=== PATIENT | male | born 1965 | race Caucasian/White ===

== ENCOUNTER 2017-05-16 13:30 | Inpatient (IN) | payer SELFPAY ==
[~2017-05-16] VITALS: Ht 190.5 cm; Wt 64.5 kg
[2017-05-16 08:00] VITALS: BP 139/76; PULSE 94; RESP 18; TEMP 97.8; O2SAT 98
[2017-05-16 13:39] VITALS: BP 150/92; PULSE 141; RESP 18; TEMP 98.7; O2SAT 97
--- NOTE | 2017-05-16 14:05 | PD ---
HPI Chief Complaint: Fever Time Seen by Provider: 14:04 Travel History International Travel<30 days: No Contact w/Intl Traveler<30days: No Traveled to known affect area: No History of Present Illness HPI 51-year-old male came to the emergency room brought by his margaret with history of fever, vomiting and diarrhea that's been going on for past 3-4 days. The fimayte says that she was not home for past couple days and she came home yesterday. She noticed that he continued to have the vomiting and diarrhea and this morning she went to get some Pedialyte. Home she noticed that he was sitting by the front door and told her not to go inside because there were people and things inside the house. She went and checked and did not see any of these things and realized that he was hallucinating and that's when she decided to bring him to the emergency room. In triage patient was significantly tachycardic. He is an alcoholic and over the past few days during his sickness he has not been able to drink as much as he usually does. Margaret says that he has had withdrawals in the past. Patient was shaky as he was talking to me. He is awake and answering questions appropriately currently. Patient was alone at home when his fiance was gone and he is not sure whether he had any seizures. [facility] Past Medical History Narrative Medical List of his past medical, surgical, social and family history is reviewed from the nursing note. Medical History: Denies Significant Hx Diminished Hearing: No Tetanus Vaccination: < 5 Years ?: Not Past Surgical History Abdominal Surgery: Yes Social History Alcohol Use: Yes (DAILY) Tobacco Use: Yes (1 PPD) Substance Use: No Allergies-Medications (Allergen,Severity, Reaction): Coded Allergies: No Known Allergies (Verified Allergy, Unknown, 05/16/17) Comments No known drug allergies. Reported Meds & Prescriptions Reported Meds & Active Scripts Active No Active Prescriptions or Reported Medications Narrative Medication List of his home medications reviewed from the nursing note. Physical Exam Narrative GENERAL: Awake, alert, moderate distress SKIN: Focused skin assessment warm/dry. Scabs and bruises all over his lower extremities and upper extremity. No active bleeding HEAD: Atraumatic. Normocephalic. EYES: Pupils equal and round. No scleral icterus. No injection or drainage. ENT: No nasal bleeding or discharge. Mucous membranes pink and moist. NECK: Trachea midline. No JVD. CARDIOVASCULAR: Regular rate and rhythm. No murmur appreciated. RESPIRATORY: No accessory muscle use. Clear to auscultation. Breath sounds equal bilaterally. GASTROINTESTINAL: Abdomen soft, non-tender, nondistended. Hepatic and splenic margins not palpable. MUSCULOSKELETAL: No obvious deformities. No clubbing. No cyanosis. No edema. NEUROLOGICAL: Awake and alert. No obvious cranial nerve deficits. Motor grossly within normal limits. Normal speech. Tremulous PSYCHIATRIC: Appropriate mood and affect; insight and judgment normal. Data Data Last Documented VS Vital Signs Date Time Temp Pulse Resp B/P (MAP) Pulse Ox O2 Delivery O2 Flow Rate FiO2 05/16/17 14:38 16 98 Room Air 05/16/17 13:39 98.7 141 150/92 (111) Orders Orders Electrocardiogram (05/16/17 14:09) Ammonia (05/16/17 14:09) Complete Blood Count With Diff (05/16/17 14:09) Comprehensive Metabolic Panel (05/16/17 14:09) Creatine Kinase (Cpk) (05/16/17 14:09) Prothrombin Time / Inr (Pt) (05/16/17 14:09) Troponin I (05/16/17 14:09) Thyroid Stimulating Hormone (05/16/17 14:09) Urinalysis - C+S If Indicated (05/16/17 14:09) Lactic Acid Sepsis Protocol (05/16/17 14:09) Blood Culture (05/16/17 14:09) Chest, Single Ap (05/16/17 14:09) Ct Brain W/O Iv Contrast(Rout) (05/16/17 14:09) Blood Glucose (05/16/17 14:09) Ecg Monitoring (05/16/17 14:09) Iv Access Insert/Monitor (05/16/17 14:09) Oximetry (05/16/17 14:09) Sodium Chloride 0.9% Flush (Ns Flush) (05/16/17 14:15) Sodium Chlor 0.9% 1000 Ml Inj (Ns 1000 M (05/16/17 14:09) Drug Screen, Random Urine (05/16/17 14:09) Alcohol (Ethanol) (05/16/17 14:09) Tylenol (Acetaminophen) (05/16/17 14:09) Salicylates (Aspirin) (05/16/17 14:09) Chlordiazepoxide (Librium) (05/16/17 14:15) Sodium Chlor 0.9% 1000 Ml Inj (Ns 1000 M (05/16/17 15:00) Thiamine Inj (Thiamine Inj) (05/16/17 15:00) Magnesium (Mg) (05/16/17 14:52) Place In Observation (05/16/17 ) Vital Signs (Adult) Q4H (05/16/17 15:39) Neuro Checks Q4H (05/16/17 15:39) Activity Bed Rest (05/16/17 15:39) Diet Regular Basic (05/16/17 Dinner) Sodium Chlor 0.9% 1000 Ml Inj (Ns 1000 M (05/16/17 15:39) Sodium Chloride 0.9% Flush (Ns Flush) (05/16/17 15:45) Sodium Chloride 0.9% Flush (Ns Flush) (05/16/17 21:00) Acetaminophen (Tylenol) (05/16/17 15:45) Basic Metabolic Panel (Bmp) (05/17/17 06:00) Complete Blood Count With Diff (05/17/17 06:00) Naloxone Inj (Narcan Inj) (05/16/17 15:45) Admit Order (Ed Use Only) (05/16/17 15:43) Labs Laboratory Tests Test 05/16/17 13:45 05/16/17 14:15 Urine Collection Type CLEAN CATCH Urine Color YELLOW Urine Turbidity CLEAR Urine pH 7.0 Urine Specific [place] 1.017 Urine Protein 30 mg/dL Urine Glucose (UA) NEG mg/dL Urine Ketones 15 mg/dL Urine Occult Blood NEG Urine Nitrite NEG Urine Bilirubin NEG Urine Leukocyte Esterase NEG Urine WBC 0-2 /hpf Urine Squamous Epithelial Cells 0-5 /hpf Urine Amorphous Sediment FEW Microscopic Urinalysis Comment CULT NOT INDICATED Urine Collection Time 1345 Urine Opiates Screen NEG Urine Barbiturates Screen NEG Urine Amphetamines Screen NEG Urine Benzodiazepines Screen NEG Urine Cocaine Screen NEG Urine Cannabinoids Screen NEG White Blood Count 6.3 TH/MM3 Red Blood Count 3.38 MIL/MM3 Hemoglobin 11.5 GM/DL Hematocrit 33.5 % Mean Corpuscular Volume 99.0 FL Mean Corpuscular Hemoglobin 34.0 PG Mean Corpuscular Hemoglobin Concent 34.3 % Red Cell Distribution Width 13.3 % Platelet Count 83 TH/MM3 Mean Platelet Volume 9.5 FL Neutrophils (%) (Auto) 71.8 % Lymphocytes (%) (Auto) 18.4 % Monocytes (%) (Auto) 6.0 % Eosinophils (%) (Auto) 0.1 % Basophils (%) (Auto) 3.7 % Neutrophils # (Auto) 4.5 TH/MM3 Lymphocytes # (Auto) 1.2 TH/MM3 Monocytes # (Auto) 0.4 TH/MM3 Eosinophils # (Auto) 0.0 TH/MM3 Basophils # (Auto) 0.2 TH/MM3 CBC Comment AUTO DIFF Differential Comment AUTO DIFF CONFIRMED Platelet Estimate LOW Platelet Morphology Comment NORMAL Prothrombin Time 10.5 SEC Prothromb Time International Ratio 1.0 RATIO Blood Urea Nitrogen 14 MG/DL Creatinine 0.55 MG/DL Random Glucose 96 MG/DL Total Protein 7.2 GM/DL Albumin 3.1 GM/DL Calcium Level 8.2 MG/DL Alkaline Phosphatase 71 U/L Aspartate Amino Transf (AST/SGOT) 72 U/L Alanine Aminotransferase (ALT/SGPT) 48 U/L Total Bilirubin 0.6 MG/DL Sodium Level 130 MEQ/L Potassium Level 3.6 MEQ/L Chloride Level 97 MEQ/L Carbon Dioxide Level 24.2 MEQ/L Anion Gap 9 MEQ/L Estimat Glomerular Filtration Rate 158 ML/MIN Lactic Acid Level 0.8 mmol/L Magnesium Level 2.2 MG/DL Ammonia 45 MCMOL/L Total Creatine Kinase 173 U/L Troponin I LESS THAN 0.02 NG/ML Thyroid Stimulating Hormone 3rd Gen 1.720 uIU/ML Salicylates Level 2.1 MG/DL Acetaminophen Level LESS THAN 2.0 MCG/ML Ethyl Alcohol Level LESS THAN 3 MG/DL MDM Medical Decision Making Medical Screen Exam Complete: Yes Emergency Medical Condition: Yes Medical Record Reviewed: Yes Interpretation(s) Twelve-lead EKG was reviewed by me. Normal sinus rhythm, normal axis, J-point elevation. Heart rate of 99 bpm. Differential Diagnosis Dehydration, acute gastritis, sepsis, alcohol withdrawal, delirium tremens Narrative Course 2:51 PM chest x-rays within normal limit. Patient is getting IV fluid bolus and Librium. He was afebrile in triage. I discussed the possibility of this being delirium tremens and the fianc understands. The patient has reluctantly agreed as well. Patient eventually should be admitted for DTs and they have agreed. I gave him a dose of Librium by mouth here. Awaiting for the blood test results. 3:34 PM blood test results are back. Patient has mild hyponatremia which could be due to the chronic alcohol abuse. Patient's shakes have subsided a little bit. Put a call out for the hospitalist for admission. Procedures EKG Prior to Arrival: No Diagnosis Primary Impression: Alcohol withdrawal delirium Admitting Information Admitting Physician Requests: Admit Scripts No Active Prescriptions or Reported Meds Destinee Mack MD May 16, 2017 14:05
[2017-05-16] MEDS ORDERED: SODIUM CHLOR 0.9% 1000 ML INJ 1,000 ML IV SCH (14:09)
[2017-05-16] MEDS ORDERED: SODIUM CHLORIDE 0.9% FLUSH 10 ML FLUSH IV FLUSH PRN ×2 (14:15→15:45)
[2017-05-16 14:38] VITALS: RESP 16; O2SAT 98
--- NOTE | 2017-05-16 14:38 | RADRPT ---
EXAM DATE/TIME: 05/16/2017 14:19 [facility] COMPARISON: No previous studies available for comparison. INDICATIONS : Fever. MEDICAL HISTORY : None. SURGICAL HISTORY : None. ENCOUNTER: Initial ACUITY: 1 day PAIN SCORE: 2/10 LOCATION: Bilateral chest FINDINGS: A single view of the chest demonstrates the lungs to be symmetrically aerated without evidence of mas s, infiltrate or effusion. The cardiomediastinal contours are unremarkable. Multiple healed left-moshe ed rib fractures. CONCLUSION: 1. No acute cardiopulmonary disease. Daniel Stock MD on May 16, 2017 at 14:36 Board Certified Radiologist. This report was verified electronically.
[2017-05-16 14:41] LABS: AUTOMATED NEUTROPHIL # 4.5 TH/MM3 (1.8-7.7); BASOPHIL # 0.2 TH/MM3 (0-0.2); BASOPHIL % 3.7 % (0.0-2.0); EOSINOPHIL % 0.1 % (0.0-4.0); HEMATOCRIT 33.5 % (39.0-51.0); HEMOGLOBIN 11.5 GM/DL (13.0-17.0); LYMPH % 18.4 % (9.0-44.0); LYMPHOCYTE # 1.2 TH/MM3 (1.0-4.8); MEAN CORPUSCULAR HGB CONC 34.3 % (32.0-36.0); MEAN PLATELET VOLUME 9.5 FL (7.0-11.0); MONOCYTE # 0.4 TH/MM3 (0-0.9); NEUT % 71.8 % (16.0-70.0); PLATELET COUNT 83 TH/MM3 (150-450); RED BLOOD COUNT 3.38 MIL/MM3 (4.50-5.90); RED CELL DISTRIBUTION WIDTH 13.3 % (11.6-17.2); WHITE BLOOD COUNT 6.3 TH/MM3 (4.0-11.0)
[2017-05-16 14:53] LABS: CHLORIDE 97 MEQ/L (98-107); SODIUM (NA) 130 MEQ/L (136-145)
[2017-05-16 14:55] LABS: CALCIUM 8.2 MG/DL (8.5-10.1)
[2017-05-16 14:56] LABS: ALBUMIN 3.1 GM/DL (3.4-5.0); BICARBONATE 24.2 MEQ/L (21.0-32.0); BLOOD UREA NITROGEN 14 MG/DL (7-18); GLUCOSE,RANDOM 96 MG/DL (74-106)
[2017-05-16 14:56] LABS: BILIRUBIN, URINE NEG (NEG); BLOOD, URINE NEG (NEG); GLUCOSE,URINE NEG (NEG); KETONE, URINE 15 mg/dL (NEG); NITRITE,URINE NEG (NEG); URINE LEUKOCYTE ESTERASE NEG (NEG)
[2017-05-16 14:59] LABS: ALT (GPT) 48 U/L (12-78); AST (GOT) 72 U/L (15-37); CREATININE 0.55 MG/DL (0.60-1.30); GLOMERULAR FILTRATION RATE 158 ML/MIN (>89)
[2017-05-16 15:00] LABS: TOTAL BILIRUBIN ADULT 0.6 MG/DL (0.2-1.0)
[2017-05-16] MEDS ORDERED: THIAMINE HCL 200 MG/2 ML VIAL IM ONE (15:00)
[2017-05-16] MEDS ORDERED: SODIUM CHLOR 0.9% 1000 ML INJ 1,000 ML IV ONE (15:00)
[2017-05-16 15:01] LABS: TOTAL PROTEIN 7.2 GM/DL (6.4-8.2)
[2017-05-16 15:02] LABS: ALKALINE PHOSPHATASE 71 U/L (45-117)
[2017-05-16 15:04] LABS: TROPONIN I LESS THAN 0.02 NG/ML (0.02-0.05)
[2017-05-16 15:07] LABS: URINE COLOR YELLOW (YELLW/STRAW)
[2017-05-16 15:08] LABS: AMORPHOUS SEDIMENT, URINE FEW; SQUAMOUS EPITHELIAL CELL URINE 0-5 /hpf (0-5); WBC, URINE 0-2 /hpf (0-5)
--- NOTE | 2017-05-16 15:08 | RADRPT ---
EXAM DATE/TIME: 05/16/2017 14:54 [facility] COMPARISON: No previous studies available for comparison. INDICATIONS : Fever and hallucinating. RADIATION DOSE: 59.95 CTDIvol (mGy) MEDICAL HISTORY : None SURGICAL HISTORY : Orthopedic surgery. ENCOUNTER: Initial ACUITY: 1 day PAIN SCALE: 0/10 LOCATION: cranial TECHNIQUE: Multiple contiguous axial images were obtained of the head. Using automated exposure control and adj ustment of the mA and/or kV according to patient size, radiation dose was kept as low as reasonably a chievable to obtain optimal diagnostic quality images. DICOM format image data is available electro nically for review and comparison. FINDINGS: CEREBRUM: Moderate cerebral atrophy out of proportion to age. The ventricles are normal for degree of atrophy. No evidence of midline shift, mass lesion, hemorrhage or acute infarction. No extra-axial fluid col lections are seen. POSTERIOR FOSSA: Moderate cerebellar atrophy. The cerebellum and brainstem are intact. The 4th ventricle is midline. The cerebellopontine angle is unremarkable. EXTRACRANIAL: The visualized portion of the orbits is intact. SKULL: The calvaria is intact. No evidence of skull fracture. CONCLUSION: 1. Moderate cerebral and cerebellar atrophy out of proportion to age. 2. No acute intracranial abnormality. Daniel Stock MD on May 16, 2017 at 15:05 Board Certified Radiologist. This report was verified electronically.
[2017-05-16 15:09] LABS: PROTHROMBIN TIME - PATIENT 10.5 SEC (9.8-11.6)
[2017-05-16] MEDS ORDERED: NALOXONE HCL 0.4 MG/ML AMP IV PUSH PRN (15:45)
[2017-05-16] MEDS ORDERED: ACETAMINOPHEN 325 MG TAB PO PRN (15:45)
[2017-05-16 16:18] VITALS: BP 141/91
[2017-05-16] MEDS ORDERED: CALCIUM CARBONATE 500 MG CHEWABLE TAB CHEW PRN (16:30)
[2017-05-16] MEDS ORDERED: LORazepam 2 MG TAB PO PRN (16:30)
[2017-05-16] MEDS ORDERED: DOCUSATE SODIUM 100 MG CAP PO PRN (16:30)
[2017-05-16] MEDS ORDERED: MAGNESIUM HYDROXIDE SUSP 30 ML CUP PO PRN (16:30)
[2017-05-16] MEDS ORDERED: FLUMAZENIL 0.5 MG/5 ML VIAL IV PUSH PRN (16:30)
[2017-05-16] MEDS ORDERED: ONDANSETRON HCL 4 MG/2 ML VIAL IV PUSH PRN (16:30)
[2017-05-16] MEDS ORDERED: LORazepam 1 MG TAB PO PRN (16:30)
[2017-05-16] MEDS ORDERED: LORazepam 2 MG/ML VIAL IV PUSH PRN ×2 (16:30)
[2017-05-16 16:32] LABS: ACETAMINOPHEN LESS THAN 2.0 MCG/ML (10.0-30.0)
--- NOTE | 2017-05-16 16:32 | HHI.HP ---
[facility] No Primary Care Physician Admission Diagnosis alcohol withdrawal delirium Diagnoses: (1) Alcohol withdrawal delirium Diagnosis: Principal Chief Complaint: Hallucinations Travel History International Travel<30 Days: No Contact w/Intl Traveler <30 Da: No Traveled to Known Affected Are: No History of Present Illness 51 year-old male with no chronic medical illnesses who presented to the hospital with his because of hallucinations. Apparently the patient's has been going out of town on business trips over the last 2 weeks and he has increased his alcohol consumption significantly since she has been gone. He indicates that he has been drinking at least 5 alcoholic beverages daily. The indicated that she found out about his increased alcohol use because when she came home she went to get a bottle of [employer] and it was completely empty. Patient went to the store to get some Pedialyte because he has been living off of a liquid diet for the last week to include vodka and cranberry juice. When she got home he states that there were people inside hand by ropes and his noted that he was hallucinating so she brought him to the hospital for evaluation. As indicated that the patient has been having significant symptoms since the beginning of the week with fevers up to 101.9 starting on Thursday. Is indicated that his had fever for at least 3 days. He has had diarrhea, with no indications of any nausea or vomiting. He has only been doing a liquid diet of alcohol. He denies any abdominal pain, hematochezia , melena. Review of Systems Constitutional: COMPLAINS OF: Fever Gastrointestinal: COMPLAINS OF: Diarrhea Psychiatric: COMPLAINS OF: Hallucinations Except as stated in HPI: all other systems reviewed are Neg Past Family Social History Past Medical History Patient denies any chronic medical illnesses Past Surgical History 2 abdominal surgeries for ruptured esophagus Right hip surgery Reported Medications Reported Meds & Active Scripts Active No Active Prescriptions or Reported Medications Allergies: Coded Allergies: No Known Allergies (Verified Allergy, Unknown, 05/16/17) Family History Reviewed is significant for mother having cancer. Both father and grandfather had alcoholism Social History Patient smokes one pack a cigarettes a day since he was 36 years old. Patient has been drinking 5 alcoholic beverages daily. Patient denies any illicit drug use Physical Exam Vital Signs Vital Signs Date Time Temp Pulse Resp B/P (MAP) Pulse Ox O2 Delivery O2 Flow Rate FiO2 05/16/17 14:38 16 98 Room Air 05/16/17 13:53 16 98 Room Air 05/16/17 13:39 98.7 141 18 150/92 (111) 97 Physical Exam GENERAL: Well-developed, well-nourished, in no acute distress. alert and orientated HEENT: Head is normocephalic without any lesions or masses noted. Facial features are symmetric. Eyes: Pupils equal round reactive to light. Extraocular muscles are intact. Conjunctivae were clear. Horizontal nystagmus. Oropharyngeal: Pharynx without any erythema edema. Tongue is midline without deviation. Buccal mucosa is moist without any masses or lesions NECK: Supple without any masses. Trachea midline no deviation. No JVD, no bruits are appreciated CARDIAC: Regular rhythm, regular rate. S1/S2 are heard. No murmurs gallops or rubs. LUNGS: Clear to auscultation bilaterally. No wheeze, rhonchi or rales. No use of accessory muscles on inspiration or expiration. ABDOMEN: Soft, nontender. Nondistended. Bowel sounds heard in all 4 quadrants. No organomegaly or masses. Negative rebound, negative guarding EXTREMITIES: No edema, pulses are equal bilaterally. No cyanosis or clubbing NEUROLOGY: Mood and affect appear appropriate. Cranial nerves II through XII grossly intact. Muscle strength 5/5 in upper and lower extremities bilaterally. Deep tendon reflexes are 2+ in upper and lower extremities bilaterally. 2+ extremity tremors. Laboratory Laboratory Tests Test 05/16/17 13:45 05/16/17 14:15 Urine Collection Type CLEAN CATCH Urine Color YELLOW Urine Turbidity CLEAR Urine pH 7.0 Urine Specific [place] 1.017 Urine Protein 30 Urine Glucose (UA) NEG Urine Ketones 15 Urine Occult Blood NEG Urine Nitrite NEG Urine Bilirubin NEG Urine Leukocyte Esterase NEG Urine WBC 0-2 Urine Squamous Epithelial Cells 0-5 Urine Amorphous Sediment FEW Microscopic Urinalysis Comment CULT NOT INDICATED Urine Collection Time 1345 Urine Opiates Screen NEG Urine Barbiturates Screen NEG Urine Amphetamines Screen NEG Urine Benzodiazepines Screen NEG Urine Cocaine Screen NEG Urine Cannabinoids Screen NEG White Blood Count 6.3 Red Blood Count 3.38 Hemoglobin 11.5 Hematocrit 33.5 Mean Corpuscular Volume 99.0 Mean Corpuscular Hemoglobin 34.0 Mean Corpuscular Hemoglobin Concent 34.3 Red Cell Distribution Width 13.3 Platelet Count 83 Mean Platelet Volume 9.5 Neutrophils (%) (Auto) 71.8 Lymphocytes (%) (Auto) 18.4 Monocytes (%) (Auto) 6.0 Eosinophils (%) (Auto) 0.1 Basophils (%) (Auto) 3.7 Neutrophils # (Auto) 4.5 Lymphocytes # (Auto) 1.2 Monocytes # (Auto) 0.4 Eosinophils # (Auto) 0.0 Basophils # (Auto) 0.2 CBC Comment AUTO DIFF Differential Comment AUTO DIFF CONFIRMED Platelet Estimate LOW Platelet Morphology Comment NORMAL Prothrombin Time 10.5 Prothromb Time International Ratio 1.0 Blood Urea Nitrogen 14 Creatinine 0.55 Random Glucose 96 Total Protein 7.2 Albumin 3.1 Calcium Level 8.2 Alkaline Phosphatase 71 Aspartate Amino Transf (AST/SGOT) 72 Alanine Aminotransferase (ALT/SGPT) 48 Total Bilirubin 0.6 Sodium Level 130 Potassium Level 3.6 Chloride Level 97 Carbon Dioxide Level 24.2 Anion Gap 9 Estimat Glomerular Filtration Rate 158 Lactic Acid Level 0.8 Magnesium Level 2.2 Ammonia 45 Total Creatine Kinase 173 Troponin I LESS THAN 0.02 Thyroid Stimulating Hormone 3rd Gen 1.720 Ethyl Alcohol Level LESS THAN 3 Date/Time Source Procedure Growth Status 05/16/17 14:30 Blood Peripheral Aerobic Blood Culture Pending Received 05/16/17 14:30 Blood Peripheral Anaerobic Blood Culture Pending Received Result Diagram: 05/16/17 1415 05/16/17 1415 Caprini VTE Risk Assessment Caprini VTE Risk Assessment: No/Low Risk (score <= 1) Caprini Risk Assessment Model Point Value = 1 Point Value = 2 Point Value = 3 Point Value = 5 Age 41-60 Minor surgery BMI > 25 kg/m2 Swollen legs Varicose veins or History of unexplained or recurrent spontaneous Oral contraceptives or hormone replacement Sepsis (< 1 month) Serious lung disease, including pneumonia (< 1 month) Abnormal pulmonary function Acute myocardial infarction Congestive heart failure (< 1 month) History of inflammatory bowel disease Medical patient at bed rest Age 61-74 Arthroscopic surgery Major open surgery (> 45 min) Laparoscopic surgery (> 45 min) Malignancy Confined to bed (> 72 hours) Immobilizing plaster cast Central venous access Age >= 75 History of VTE Family history of VTE Factor V Leiden Prothrombin [id number] Lupus anticoagulant Anticardiolipin antibodies Elevated serum homocysteine Heparin-induced thrombocytopenia Other congenital or acquired thrombophilia Stroke (< 1 month) Elective arthroplasty Hip, pelvis, or leg fracture Acute spinal cord injury (< 1 month) Prophylaxis Regimen Total Risk Factor Score Risk Level Prophylaxis Regimen 0-1 Low Early ambulation 2 Moderate Order ONE of the following: *Sequential Compression Device (SCD) *Heparin 5000 units SQ BID 3-4 Higher Order ONE of the following medications: *Heparin 5000 units SQ TID *Enoxaparin/Lovenox 40 mg SQ daily (WT < 150 kg, CrCl > 30 mL/min) *Enoxaparin/Lovenox 30 mg SQ daily (WT < 150 kg, CrCl > 10-29 mL/min) *Enoxaparin/Lovenox 30 mg SQ BID (WT < 150 kg, CrCl > 30 mL/min) AND/OR *Sequential Compression Device (SCD) 5 or more Highest Order ONE of the following medications: *Heparin 5000 units SQ TID (Preferred with Epidurals) *Enoxaparin/Lovenox 40 mg SQ daily (WT < 150 kg, CrCl > 30 mL/min) *Enoxaparin/Lovenox 30 mg SQ daily (WT < 150 kg, CrCl > 10-29 mL/min) *Enoxaparin/Lovenox 30 mg SQ BID (WT < 150 kg, CrCl > 30 mL/min) AND *Sequential Compression Device (SCD) Assessment and Plan Assessment and Plan Alcohol withdrawal with visual hallucinations Patient will be admitted with [facility] protocol Ammonia level was mildly elevated, continue monitor ammonia level Start thiamine, folic acid Counseled the patient on abstinence from alcohol, patient will require outpatient treatment upon discharge Monitor for seizures Hyponatremia Secondary to liquid alcohol diet Monitor sodium level DVT prevention sequential compression devices Physician Certification 2 Midnight Certification Type: Admission for Inpatient Services Order for Inpatient Services The services are ordered in accordance with Medicare regulations or non- Medicare payer requirements, as applicable. In the case of services not specified as inpatient-only, they are appropriately provided as inpatient services in accordance with the 2-midnight benchmark. Estimated LOS (days): 3 days is the estimated time the patient will need to remain in the hospital, assuming treatment plan goals are met and no additional complications. Post-Hospital Plan: Not yet determined Michael Becerra May 16, 2017 16:31
[2017-05-16] MEDS: SODIUM CHLOR 0.9% 1000 ML INJ 1,000 ML IV SCH (17:08)
[2017-05-16 20:00] VITALS: BP 135/80; PULSE 100; RESP 20; TEMP 99.1; O2SAT 100
[2017-05-16] MEDS: SODIUM CHLORIDE 0.9% FLUSH 10 ML FLUSH IV FLUSH SCH (21:15)
[2017-05-17 00:30] VITALS: BP 147/82; PULSE 89; RESP 20; TEMP 98.7; O2SAT 97
[2017-05-17] MEDS: LORazepam 2 MG/ML VIAL IV PUSH PRN ×4 (01:30→22:54)
[2017-05-17] MEDS: SODIUM CHLOR 0.9% 1000 ML INJ 1,000 ML IV SCH (01:30)
[2017-05-17 07:52] LABS: HEMATOCRIT 34.4 % (39.0-51.0); HEMOGLOBIN 11.8 GM/DL (13.0-17.0); MEAN CELL VOLUME 100.4 FL (80.0-100.0); MEAN CORPUSCULAR HEMOGLOBIN 34.4 PG (27.0-34.0); MEAN CORPUSCULAR HGB CONC 34.2 % (32.0-36.0); MEAN PLATELET VOLUME 8.7 FL (7.0-11.0); PLATELET COUNT 81 TH/MM3 (150-450); RED BLOOD COUNT 3.42 MIL/MM3 (4.50-5.90); RED CELL DISTRIBUTION WIDTH 13.3 % (11.6-17.2); WHITE BLOOD COUNT 5.4 TH/MM3 (4.0-11.0)
[2017-05-17 08:00] VITALS: BP 165/82; PULSE 73; RESP 20; TEMP 96.8; O2SAT 95
[2017-05-17 08:19] LABS: BICARBONATE 25.2 MEQ/L (21.0-32.0); CREATININE 0.46 MG/DL (0.60-1.30)
[2017-05-17] MEDS: SODIUM CHLORIDE 0.9% FLUSH 10 ML FLUSH IV FLUSH SCH ×2 (09:00→21:07)
--- NOTE | 2017-05-17 09:04 | HHI.PR ---
Subjective Remarks 51-year-old male who is seen in follow-up for alcohol withdrawal. Patient apparently had a bad night. He was up all night, belligerent, patient had be placed in restraints. Upon seeing the patient and the room he is obviously withdrawing pretty bad at this time. He is not completely orientated. Overt symptoms of withdrawal have been appreciated. We'll need to monitor closely and may need to transfer to ICU for Precedex Objective Vitals Vital Signs Date Time Temp Pulse Resp B/P (MAP) Pulse Ox O2 Delivery O2 Flow Rate FiO2 05/17/17 00:30 98.7 89 20 147/82 (103) 97 05/16/17 20:00 99.1 100 20 135/80 (98) 100 05/16/17 16:18 90 16 141/91 (108) 97 05/16/17 14:38 16 98 Room Air 05/16/17 13:53 16 98 Room Air 05/16/17 13:39 98.7 141 18 150/92 (111) 97 I/O 05/16/17 05/16/17 05/16/17 05/17/17 05/17/17 05/17/17 06:59 14:59 22:59 06:59 14:59 22:59 Intake Total 2000 ml 480 ml Output Total 250 ml Balance 1750 ml 480 ml Intake Oral 480 ml IV Total 2000 ml Output Urine Total 250 ml # Voids 100 2 # Bowel Movements 2 1 Result Diagram: 05/17/17 0743 05/17/17 0743 Objective Remarks GENERAL: Well-developed, well-nourished, in no acute distress. Patient obviously withdrawing from alcohol this time. He is orientated to person, year. Not to place HEENT: Head is normocephalic without any lesions or masses noted. Facial features are symmetric. Eyes: Pupils equal round reactive to light. Extraocular muscles are intact. Horizontal nystagmus noted. Conjunctivae were clear. NECK: Supple without any masses. Trachea midline no deviation. No JVD, CARDIAC: Regular rhythm, regular rate. S1/S2 are heard. No murmurs gallops or rubs. LUNGS: Clear to auscultation bilaterally. No wheeze, rhonchi or rales. No use of accessory muscles on inspiration or expiration. ABDOMEN: Soft, nontender. Nondistended. Bowel sounds heard in all 4 quadrants. No organomegaly or masses. Negative rebound, negative guarding EXTREMITIES: No edema, pulses are equal bilaterally. No cyanosis or clubbing NEUROLOGY: Cranial nerves II through XII grossly intact. Moving all extremities. Speech is mildly slurred Urinary Catheter: No Vascular Central Line Catheter: No A/P Assessment and Plan Alcohol withdrawal with visual hallucinations Continue with [facility] protocol Ammonia level was mildly elevated, repeat ammonia level is normal Continue thiamine, folic acid Counseled the patient on abstinence from alcohol, patient will require outpatient treatment upon discharge Monitor for seizures Patient with significant withdrawal symptoms at this time., Close monitoring May needed transferred ICU for Precedex Hyponatremia Secondary to liquid alcohol diet Monitor sodium level Hypokalemia Replete and continue to monitor DVT prevention sequential compression devices Discharge Planning Discharge planning unable to determine this time. Patient may require 5-7 days for withdrawals. Michael Bceerra May 17, 2017 09:04
[2017-05-17 09:08] LABS: BANDS 10 % (0-6); LYMPHOCYTES 20 % (9-44); MONOCYTES 8 % (0-8); NEUTROPHIL # MANUAL DIFF 3.9 TH/MM3 (1.8-7.7); POLYS (SEG NEUTROPHILS) 62 % (16-70)
[2017-05-17] MEDS: FOLIC ACID 1 MG TAB PO SCH (09:34)
[2017-05-17] MEDS: THIAMINE HCL 100 MG TAB PO SCH (09:34)
[2017-05-17] MEDS: POTASSIUM CHLORIDE INJ 20 MEQ in SODIUM CHLOR 0.9% 1000 ML INJ 1,000 ML IV SCH ×2 (09:51→22:54)
[2017-05-17] MEDS ORDERED: POTASSIUM CHLORIDE 10 MEQ CONTROLLED RELEASE TAB PO ONE (10:00)
[2017-05-17 12:00] VITALS: BP 160/74; PULSE 80; RESP 20; TEMP 97; O2SAT 96
--- NOTE | 2017-05-17 14:38 | EKG ---
Date Performed: 05/16/2017 Time Performed: 14:41:07 PTAGE: 51 years EKG: Sinus rhythm ST ELEVATION, PROBABLY EARLY REPOLARIZATION BORDERLINE ECG NO PREVIOUS TRACING DOCTOR: Marin Spain Interpretating Date/Time 05/17/2017 14:36:37
[2017-05-17 16:00] VITALS: BP 136/77; PULSE 96; RESP 18; TEMP 98.2; O2SAT 97
[2017-05-17 20:00] VITALS: BP 159/98; PULSE 99; RESP 20; TEMP 95.6; O2SAT 100
[2017-05-18] VITALS: BP 155/96; PULSE 102; RESP 20; TEMP 98.7; O2SAT 98
[2017-05-18] MEDS: LORazepam 2 MG/ML VIAL IV PUSH PRN ×2 (01:06→04:16)
[2017-05-18] MEDS: POTASSIUM CHLORIDE INJ 20 MEQ in SODIUM CHLOR 0.9% 1000 ML INJ 1,000 ML IV SCH ×3 (06:19→21:29)
--- NOTE | 2017-05-18 07:43 | HHI.PR ---
Subjective Remarks Patient seen and examined today for follow-up on alcohol withdrawal. Patient was difficult to arouse this morning. According nursing staff patient had a total of Ativan 10 mg throughout the evening for withdrawal symptoms. Blood pressure is moderately high. Afebrile Objective Vitals Vital Signs Date Time Temp Pulse Resp B/P (MAP) Pulse Ox O2 Delivery O2 Flow Rate FiO2 05/18/17 00:00 98.7 102 20 155/96 (115) 98 05/17/17 20:00 95.6 99 20 159/98 (118) 100 05/17/17 16:00 98.2 96 18 136/77 (96) 97 05/17/17 12:00 97.0 80 20 160/74 (102) 96 05/17/17 08:00 96.8 73 20 165/82 (109) 95 I/O 05/17/17 05/17/17 05/17/17 05/18/17 05/18/17 05/18/17 07:00 15:00 23:00 07:00 15:00 23:00 Intake Total 480 ml 750 ml 550 ml 1120 ml Output Total 950 ml Balance 480 ml 750 ml 550 ml 170 ml Intake Oral 480 ml 750 ml 550 ml 120 ml IV Total 1000 ml Output Urine Total 950 ml # Voids 2 3 2 5 # Bowel Movements 1 0 0 0 Result Diagram: 05/17/1774205/17/17742 Objective Remarks GENERAL: Well-developed, well-nourished, in no acute distress. Patient obviously continues to withdraw from alcohol. Patient is somnolent HEENT: Head is normocephalic without any lesions or masses noted. Facial features are symmetric. Eyes: Pupils equal round reactive to light. Extraocular muscles are intact. Horizontal nystagmus noted. Conjunctivae were clear. NECK: Supple without any masses. Trachea midline no deviation. No JVD, CARDIAC: Regular rhythm, regular rate. S1/S2 are heard. No murmurs gallops or rubs. LUNGS: Clear to auscultation bilaterally. No wheeze, rhonchi or rales. No use of accessory muscles on inspiration or expiration. ABDOMEN: Soft, nontender. Nondistended. Bowel sounds heard in all 4 quadrants. No organomegaly or masses. Negative rebound, negative guarding EXTREMITIES: No edema, pulses are equal bilaterally. No cyanosis or clubbing NEUROLOGY: Cranial nerves II through XII grossly intact. Moving all extremities. Speech is mildly slurred Urinary Catheter: No Vascular Central Line Catheter: No A/P Assessment and Plan Alcohol withdrawal with visual hallucinations Continue with CIWA protocol We'll start Librium 25 mg 3 times daily, hold for sedation Ammonia level was mildly elevated, repeat ammonia level is normal Continue thiamine, folic acid Counseled the patient on abstinence from alcohol, patient will require outpatient treatment upon discharge Monitor for seizures Patient with significant withdrawal symptoms at this time., Close monitoring Hyponatremia Secondary to liquid alcohol diet Monitor sodium level Hypokalemia Replete and continue to monitor DVT prevention sequential compression devices Discharge Planning Discharge planning unable to determine this time. Patient may require 5-7 days for withdrawals. Michael Becerra May 18, 2017 07:43
[2017-05-18] MEDS ORDERED: cloNIDine HCL 0.1 MG TAB PO PRN (07:45)
[2017-05-18 07:57] VITALS: BP 146/92; PULSE 85; RESP 20; TEMP 96.1; O2SAT 96
[2017-05-18] MEDS ORDERED: ENALAPRILAT 1.25 MG/ML VIAL IV PUSH PRN (08:00)
[2017-05-18] MEDS: THIAMINE HCL 100 MG TAB PO SCH (08:53)
[2017-05-18] MEDS: FOLIC ACID 1 MG TAB PO SCH (08:53)
[2017-05-18] MEDS: SODIUM CHLORIDE 0.9% FLUSH 10 ML FLUSH IV FLUSH SCH ×2 (08:56→20:33)
[2017-05-18 08:59] LABS: CALCIUM 8.3 MG/DL (8.5-10.1)
[2017-05-18 09:03] LABS: CREATININE 0.33 MG/DL (0.60-1.30)
[2017-05-18] MEDS: chlordiazePOXIDE 25 MG CAP PO SCH ×3 (10:11→17:18)
[2017-05-18] MEDS ORDERED: POTASSIUM CHLORIDE 20 MEQ CONTROLLED RELEASE TAB PO ONE (10:30)
[2017-05-18 12:00] VITALS: BP 155/87; PULSE 74; RESP 20; TEMP 97.6; O2SAT 94
[2017-05-18 16:00] VITALS: BP 122/80; PULSE 90; RESP 20; TEMP 98; O2SAT 98
[2017-05-18 20:00] VITALS: BP 145/78; PULSE 82; RESP 18; TEMP 98.5; O2SAT 97
[2017-05-19] VITALS: BP 156/90; PULSE 64; RESP 16; TEMP 96.2; O2SAT 97
[2017-05-19 07:56] VITALS: BP 160/90; PULSE 68; RESP 20; TEMP 97.1; O2SAT 97
[2017-05-19] MEDS: chlordiazePOXIDE 25 MG CAP PO SCH ×2 (08:24→12:09)
[2017-05-19] MEDS: THIAMINE HCL 100 MG TAB PO SCH (08:24)
[2017-05-19] MEDS: SODIUM CHLORIDE 0.9% FLUSH 10 ML FLUSH IV FLUSH SCH (08:24)
[2017-05-19] MEDS: FOLIC ACID 1 MG TAB PO SCH (08:24)
[2017-05-19] MEDS: POTASSIUM CHLORIDE INJ 20 MEQ in SODIUM CHLOR 0.9% 1000 ML INJ 1,000 ML IV SCH (09:34)
[2017-05-19 11:22] LABS: BICARBONATE 28.7 MEQ/L (21.0-32.0); CALCIUM 8.2 MG/DL (8.5-10.1); CREATININE 0.56 MG/DL (0.60-1.30)
[2017-05-19] MEDS ORDERED: CHLO25CA9 PO (11:25)
--- NOTE | 2017-05-19 11:25 | HHI.DCPOC ---
Discharge Care Plan Diagnosis: (1) Alcohol withdrawal delirium Goals to Promote Your Health * To prevent worsening of your condition and complications * To maintain your health at the optimal level Directions to Meet Your Goals Take your medications as prescribed Follow your dietary instruction Follow activity as directed Keep your appointments as scheduled Take your immunizations and boosters as scheduled If your symptoms worsen call your PCP, if no PCP go to Urgent Care Center or Emergency Room Smoking is Dangerous to Your Health. Avoid second hand smoke Call the 24-hour hour crisis hotline for domestic abuse at Jennifer Prasad MD May 19, 2017 11:25
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
[2017-05-19 11:59] VITALS: BP 144/85; PULSE 78; RESP 20; TEMP 96.8; O2SAT 98
== END 2017-05-19 14:03 | disposition home or self-care (01) | DRG 897 ==
LOC: PHED 13:30 → PHEDA 15:44 → INTOOBSV 15:44 → PH3A 16:26 → OBSVTOIN 05-17 18:09
PROVIDERS: ADMIT Hospitalist; ATTEND Hospitalist
DX: F10.231 Alcohol dependence with withdrawal delirium (principal); E87.1 Hypo-osmolality and hyponatremia; E87.6 Hypokalemia; R44.1 Visual hallucinations; Z78.1 Physical restraint status; F17.210 Nicotine dependence, cigarettes, uncomplicated
CPT/HCPCS: 70450; 71045; 80048; 80053; 80307; 81001; 82140; 82550; 83605; 83735; 84443; 84484; 85007; 85025; 85027; 85610; 87040; 93005; 96360; 96361; 96372; G0378; J2060; J3411; J3480; J7030

== ENCOUNTER 2018-01-28 06:58 | Inpatient (IN) ==
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
--- NOTE | 2018-01-28 08:05 | CT ---
EXAM DATE: 01/28/2018 7:55 AM EDT AGE/SEX: 52 years / Male INDICATIONS: Altered mental status CLINICAL DATA: This is the patient's initial encounter. Patient reports that signs and symptoms have been present for 1 day and indicates a pain score of 0/10. MEDICAL/SURGICAL HISTORY: None. None. RADIATION DOSE: 36.84 CTDI (mGy) COMPARISON: [facility], CT BRAIN W/O CONTRAST, 05/16/2017. . TECHNIQUE: CT of the head without contrast. Using automated exposure control and adjustment of the mA and/or kV according to patient size, radiation dose was kept as low as reasonably achievable to ob tain optimal diagnostic quality images. DICOM format image data is available electronically for revi ew and comparison. FINDINGS: Cerebrum: The ventricles are normal for age. No evidence of midline shift, mass lesion, hemorrhage or acute infarction. No extraaxial fluid collections are seen. Posterior Fossa: The cerebellum and brainstem are intact. The 4th ventricle is midline. The cerebe llopontine angle is unremarkable. Extracranial: The visualized portion of the orbits is intact. Skull: The calvaria is intact. No evidence of skull fracture. CONCLUSION: 1. No acute intracranial abnormality . Electronically signed by: Willem Blair MD 01/28/2018 8:03 AM EDT
[2018-01-28 08:23] LABS: Baso % (Auto) 0.2 % (0.0-2.0); Eos % (Auto) 0.3 % (0.0-4.0); Hematocrit 36.4 % (39.0-51.0); Hemoglobin 12.7 gm/dL (13.0-17.0); Lymph # (Auto) 0.6 th/mm3 (1.0-4.8); Lymph % (Auto) 11.1 % (9.0-44.0); Mean Corpuscular Hemoglobin 36.1 pg (27.0-34.0); Mean Corpuscular Volume 103.4 fL (80.0-100.0); Mean Platelet Volume 8.7 fL (7.0-11.0); Mono # (Auto) 0.6 th/mm3 (0.0-0.9); Mono % (Auto) 11.2 % (0.0-8.0); Neut # (Auto) 4.2 th/mm3 (1.8-7.7); Neut % (Auto) 77.2 % (16.0-70.0); Platelet Count 85 th/mm3 (150-450); Red Blood Count 3.52 mil/mm3 (4.50-5.90); Red Cell Distribution Width 13.2 % (11.6-17.2); White Blood Count 5.4 th/mm3 (4.0-11.0)
[2018-01-28 08:41] LABS: Albumin 3.8 g/dL (3.4-5.0); Anion Gap 14 meq/L (5-15); Aspartate Aminotransferase 58 U/L (15-37); Blood Urea Nitrogen 18 mg/dL (7-18); Calcium 8.9 mg/dL (8.5-10.1); Chloride 89 meq/L (98-107); Glomerular Filtration Rate Greater Than 89 mL/min (>89); Glucose,Random 86 mg/dL (74-106); Magnesium 1.8 mg/dL (1.5-2.5); Sodium 125 meq/L (136-145)
[2018-01-28 08:42] LABS: Alanine Aminotransferase 51 U/L (12-78)
[2018-01-28 08:52] LABS: Alkaline Phosphatase 82 U/L (45-117); Total Protein 7.4 g/dL (6.4-8.2)
[2018-01-28] MEDS ORDERED: LORazepam 1 MG Tablet PO PRN ×2 (08:52→11:50)
[2018-01-28] MEDS ORDERED: Sod Chloride 0.9% Inj 1,000 ML IV.SIG SCH (09:00)
[2018-01-28 09:04] LABS: Platelet Morphology Normal (Normal)
[2018-01-28] MEDS: Haloperidol Inj 5 MG/ML Ampul IV.PUSH PRN ×5 (09:59→18:49)
[2018-01-28 10:03] LABS: Amphetamine Screen,Urine Neg (Neg); Barbiturate Screen,Urine Neg (Neg); Cannabinoid Screen,Urine Neg (Neg); Cocaine Screen,Urine Neg (Neg); Opiate Screen,Urine Neg (Neg)
--- NOTE | 2018-01-28 11:49 | P.HPFP ---
History of Present Illness Primary Care Physician: No Primary Care Physician <Adrian Rios - 01/29/18 13:53> No Primary Care Physician <Do Heart - 01/28/18 11:49> Chief Complaint: alcohol withdrawal, hallucinations <Do Heart - 11:49> History of Present Illness: Patient unable to provide a history at this time. Patient unable to answer questions appropriately. Throughout questioning patient seems to be reacting to internal stimuli. When asked what his name is, he states "Alexandrea Koch", but then states that this is his friend standing next to the hospital bed talking to him. There are no other people in the room, in this direction of which he is motioning. When asked the year patient states that it is 1986 and does not believe it is 2017 when corrected. He notes that he is in [place] but thinks that he is in [place]. When asked where he is right now he states that he is "in front of your house". When corrected that he is at [facility], he nods his head. Patient is unable to say why or how he got to the hospital at this moment in time. After speaking to ED physician and nursing staff, patient was brought in by police, after they were called for patient being disruptive on [facility], where he lives. Patient was reacting to internal stimuli at that time and was noted to have hallucinations. He has been admitted to [facility] in the past for similar symptoms. Patient was discharged in stable condition after receiving Ativan and Librium for withdrawal. <Do Heart - 01/28/18 13:49> - Diagnosis (1) Altered mental status (2) Alcohol withdrawal hallucinosis (3) Hypokalemia (4) Hyponatremia (5) Nutrition, metabolism, and development symptoms (6) DVT prophylaxis <Do Heart - 01/28/18 19:27> Inpatient Certification: I certify that the inpatient services were ordered in accordance with Medicare regulations governing the order. This includes certification that hospital inpatient services are reasonable and necessary and in the case of services not specified as inpatient-only under 42 CFR 419.22(n), that they are appropriately provided as inpatient services in accordance to with the 2-midnight benchmark under 43 CFR 412.3(e) <Adrian Rios - 01/29/18 13:53> [facility] - History History Provided By: Patient <Do Heart - 01/28/18 11:49> - Medical / Surgical Hx Neg / Unobtainable Medical Problems Denied: Unable to Obtain <Do Heart - 01/28/18 13:49> Surgical History: Unable to Obtain <Do Heart - 01/28/18 13:49> - Medical History Medical History: Medical History (Last Reviewed 01/28/18 @ 13:40 by Do Heart DO, R1) ETOH abuse EtOH dependence <Adrian Rios - 01/29/18 13:53> Medical History (Last Reviewed 01/28/18 @ 13:40 by Do Heart DO, R1) ETOH abuse EtOH dependence <Do Heart - 01/28/18 13:49> - Family History Family History: Family History (Last Updated 01/28/18 @ 13:41 by Do Heart DO, R1) Other Family history unknown <Adrian Rios - 01/29/18 13:53> Family History (Last Updated 01/28/18 @ 13:41 by Do Heart DO, R1) Other Family history unknown <Do Heart - 01/28/18 13:49> - Social History I have reviewed the patient's Social History: Yes <Do Heart 01/28/18 13:49> - Tobacco History Tobacco Use In Past 30 Days: Yes <Do Heart 01/28/18 11:49> Smoking Status: Current every day smoker (1 PPD) <Do Heart 01/28/18 13:49> Tobacco Type: Cigarettes <Do Heart 01/28/18 11:49> - Alcohol History How Often Do You Have a Drink Containing Alcohol: 4 or more times a week <Do Heart 01/28/18 11:49> - Substance Use History Substance History: No History of Abuse <Do Heart 01/28/18 11:49> - Travel History Recent Travel in the [facility] Within the Last 8 Weeks: No <Do Heart 11:49> - Immunization History Tetanus Immunization: <5 Years <Do Heart - 01/28/18 11:49> Medications and Allergies Allergies Allergy/AdvReac Type Severity Reaction Status Date / Time No Known Allergies Allergy Verified 01/28/18 07:25 <Adrian Rios - 01/29/18 13:53> Home Medications Medication Instructions Recorded Confirmed Type No Known Home Medications 01/28/18 01/28/18 History <Adrian Rios - 01/29/18 13:53> Active Medications: Active Medications Acetaminophen (Tylenol) 650 mg PO Q4H PRN PRN Reason: Temp > 100.4 Al Hydroxide/Mg Hydroxide (Milk Of Magnesia Liq) 30 ml PO Q12H PRN PRN Reason: Mild Constipation Bisacodyl (Dulcolax Supp) 10 mg RECTAL DAILY PRN PRN Reason: SEVERE CONSITIPATION Chlordiazepoxide (Librium) 50 mg PO Q6H PRN PRN Reason: AGITATION AND/OR HALLUCINATION Diazepam (Valium) 10 mg PO Q4H PRN PRN Reason: For CIWA score >8 Flumazenil (Romazecon Inj) 0.2 mg IV.PUSH Q1M PRN PRN Reason: OVERSEDATION Haloperidol Lactate (Haldol Inj) 1 mg IV.PUSH Q15M PRN PRN Reason: for severe agitation Last Admin: 01/28/18 18:49 Dose: 1 mg Sodium Chloride (Ns Inj) 1,000 mls @ 120 mls/hr IV.CONT .Q8H20M [facility] Last Admin: 01/29/18 09:18 Dose: 120 mls/hr Thiamine HCl 100 mg/ Sodium (Chloride) 101 mls @ 100 mls/hr IV.SIG Q24H [facility] Stop: 01/30/18 15:01 Last Infusion: 01/28/18 16:26 Dose: Infused Magnesium Sulfate 2 gm/ Sodium (Chloride) 100 mls @ 50 mls/hr IV.SIG UNSCH PRN PRN Reason: For Magnesium 1.2 - 1.6 mg/dL Potassium Chloride (Kcl 40 Meq Premix Inj) 40 meq in 100 mls @ 25 mls/hr IV.SIG Q2H PRN PRN Reason: For Potassium 2.8 - 3.2 mEq/L Potassium Chloride (Kcl 20 Meq Premix Inj) 20 meq in 100 mls @ 50 mls/hr IV.SIG Q2H PRN PRN Reason: For Potassium 3.3 - 3.5 mEq/L Potassium Chloride (Kcl 40 Meq Premix Inj) 40 meq in 100 mls @ 25 mls/hr IV.SIG UNSCH PRN PRN Reason: For Potassium 3.3 - 3.5 mEq/L Potassium Chloride (Kcl 20 Meq Premix Inj) 20 meq in 100 mls @ 50 mls/hr IV.SIG Q2H PRN PRN Reason: For Potassium 2.8 - 3.2 mEq/L Potassium Phosphate 30 mmol/ (Sodium Chloride) 260 mls @ 42 mls/hr IV.SIG UNSCH PRN PRN Reason: SEE LABEL COMMENTS Sodium Phosphate 30 mmol/ (Sodium Chloride) 260 mls @ 42 mls/hr IV.SIG UNSCH PRN PRN Reason: For Phosphorus < 2.5 mg/dL Magnesium Sulfate 4 gm/ Sodium (Chloride) 100 mls @ 50 mls/hr IV.SIG UNSCH PRN PRN Reason: For Magnesium 0.9 - 1.1 mg/dL Lactulose (Lactulose Liq) 30 ml PO DAILY PRN PRN Reason: SEVERE CONSITIPATION Lorazepam (Ativan Inj) 1 mg IV.PUSH Q4H PRN PRN Reason: for CIWA 8-10 Last Admin: 01/28/18 09:05 Dose: 1 mg Lorazepam (Ativan Inj) 2 mg IV.PUSH Q15M PRN PRN Reason: for CIWA > 20 Last Admin: 01/28/18 18:49 Dose: 2 mg Lorazepam (Ativan Inj) 2 mg IV.PUSH Q1H PRN PRN Reason: for CIWA 15-20 Last Admin: 01/28/18 22:32 Dose: 2 mg Lorazepam (Ativan Inj) 2 mg IV.PUSH Q2H PRN PRN Reason: for CIWA 11-14 Lorazepam (Ativan) 2 mg PO Q2H PRN PRN Reason: for CIWA 11-14 Lorazepam (Ativan) 1 mg PO Q4H PRN PRN Reason: for CIWA 8-10 Magnesium Oxide (Mag-Ox) 800 mg PO UNSCH PRN PRN Reason: For Magnesium 1.2 - 1.6 mg/dL Ondansetron HCl (Zofran Inj) 4 mg IV.PUSH Q6H PRN PRN Reason: NAUSEA OR VOMITING Potassium Bicarb/Potassium Chloride (K-Lyte Cl Eff) 50 meq PO UNSCH PRN PRN Reason: For Potassium 3.3 - 3.5 mEq/L Potassium Phosphate (K-Phos Original) 2,000 mg PO Q4H PRN PRN Reason: Phosphorus Less Than 2.5 mg/dL Potassium Phosphate (K-Phos Original) 2,000 mg PO UNSCH PRN PRN Reason: SEE LABEL COMMENTS Sennosides (Senokot) 17.2 mg PO Q12H PRN PRN Reason: Moderate Constipation Thiamine HCl (Vitamin B1) 100 mg PO DAILY DELMI <Adrian Rios - 01/29/18 13:53> Active Medications Flumazenil (Romazecon Inj) 0.2 mg IV.PUSH Q1M PRN PRN Reason: OVERSEDATION Haloperidol Lactate (Haldol Inj) 1 mg IV.PUSH Q15M PRN PRN Reason: for severe agitation Last Admin: 01/28/18 09:59 Dose: 1 mg Lorazepam (Ativan Inj) 1 mg IV.PUSH Q4H PRN PRN Reason: for CIWA 8-10 Last Admin: 01/28/18 09:05 Dose: 1 mg Lorazepam (Ativan Inj) 2 mg IV.PUSH Q15M PRN PRN Reason: for CIWA > 20 Lorazepam (Ativan Inj) 2 mg IV.PUSH Q1H PRN PRN Reason: for CIWA 15-20 Lorazepam (Ativan Inj) 2 mg IV.PUSH Q2H PRN PRN Reason: for CIWA 11-14 Lorazepam (Ativan) 2 mg PO Q2H PRN PRN Reason: for CIWA 11-14 Lorazepam (Ativan) 1 mg PO Q4H PRN PRN Reason: for CIWA 8-10 <Do Heart - 01/28/18 11:49> Exam Vital signs: Vital Signs 01/28/18 14:54 01/28/18 15:00 01/28/18 15:02 Temperature Pulse Rate 80 74 72 Respiratory Rate 35 H 20 18 Blood Pressure 134/79 Pulse Oximetry 91 L 100 100 01/28/18 16:00 01/28/18 17:00 01/28/18 17:01 Temperature 98.2 F Pulse Rate 70 73 69 Respiratory Rate 16 21 26 H Blood Pressure 125/85 122/78 122/78 Pulse Oximetry 100 100 100 01/28/18 18:00 01/28/18 18:01 01/28/18 19:00 Temperature Pulse Rate 67 68 65 Respiratory Rate 27 H 29 H 22 Blood Pressure 108/58 L 108/58 L 103/67 Pulse Oximetry 92 L 100 01/28/18 20:00 01/28/18 21:00 01/28/18 22:00 Temperature 97.8 F Pulse Rate 62 63 67 Respiratory Rate 16 16 21 Blood Pressure 112/69 108/69 Pulse Oximetry 100 100 94 L 01/28/18 22:01 01/28/18 23:00 01/28/18 23:12 Temperature Pulse Rate 59 L 85 81 Respiratory Rate 15 23 22 Blood Pressure 128/75 122/82 Pulse Oximetry 97 99 86 L 01/29/18 00:00 01/29/18 01:00 01/29/18 02:00 Temperature 97.8 F Pulse Rate 70 62 66 Respiratory Rate 17 13 21 Blood Pressure 109/71 123/85 121/80 Pulse Oximetry 100 100 100 01/29/18 03:00 01/29/18 04:00 01/29/18 04:07 Temperature 98 F Pulse Rate 58 L 64 63 Respiratory Rate 13 17 14 Blood Pressure 119/75 121/83 Pulse Oximetry 99 100 100 01/29/18 04:08 01/29/18 04:09 01/29/18 04:10 Temperature Pulse Rate 65 64 64 Respiratory Rate 15 15 15 Blood Pressure 124/82 128/82 124/79 Pulse Oximetry 100 100 100 01/29/18 04:20 01/29/18 05:00 01/29/18 06:00 Temperature Pulse Rate 64 58 L 54 L Respiratory Rate 15 18 20 Blood Pressure 121/84 129/79 153/74 H Pulse Oximetry 100 97 100 01/29/18 07:00 01/29/18 08:00 01/29/18 09:00 Temperature 97.7 F Pulse Rate 74 55 L 60 Respiratory Rate 17 14 15 Blood Pressure 147/81 H 124/78 138/85 Pulse Oximetry 100 100 100 01/29/18 10:00 01/29/18 11:00 Temperature Pulse Rate 68 61 Respiratory Rate 16 14 Blood Pressure 124/80 115/69 Pulse Oximetry 81 L 100 Intake & Output 01/28/18 01/29/1801/29/18 18:59 06:59 18:59 Intake Total 1201 / 1201 1100 / 1100 1000 / 1000 Output Total 450 / 450 Balance 751 / 751 1100 / 1100 1000 / 1000 Weight 69 kg 64.7 kg Intake: IV 1201 / 1201 1100 / 1100 1000 / 1000 NS Inj 1,000 ML @ 120 mls/hr IV 1000 / 1000 1000 / 1000 .CONT .Q8H20M DELMI Rx#:[id number] KCl 10 mEq Premix Inj 10 meq In 100 / 100 100 / 100 100 ml @ 100 mls/hr IV.SIG Q1H DELMI Rx#:[id number] NS Inj 1,000 ML @ 1000 mls/hr 1000 / 1000 IV.SIG BOLUS DELMI Rx#:[id number] Thiamine Inj 100 MG In NS Inj 101 / 101 100 ML @ 100 mls/hr IV.SIG Q24H DELMI Rx#:[id number] Output: Urine 450 / 450 Other: # Bowel Movements 0 Weight On Admission 69 kg <Adrian Rios - 01/29/18 13:53> Vital Signs 01/28/18 07:19 Temperature 98.3 F Pulse Rate 102 H Respiratory Rate 20 Blood Pressure 123/84 Intake & Output 01/27/18 01/28/18 01/28/18 18:59 06:59 18:59 Intake Total 1000 / 1000 Balance 1000 / 1000 Weight 74.389 kg Intake: IV 1000 / 1000 NS Inj 1,000 ML @ 1000 mls/hr 1000 / 1000 IV.SIG BOLUS DELMI Rx#:[id number] <Do Heart - 01/28/18 11:49> Narrative: GENERAL: Thin, 52 year old male who appears older than stated age, laying down in bed with upper extremity retrains in mild distress. HEENT: Atraumatic. Normocephalic. Pupils dilated after administration of Ativan , equal. MMM. Oropharynx non-erythematous, or drainage. NECK: Trachea midline without obvious JVD. CARDIOVASCULAR: Tachycardic, regular rhythm. RESPIRATORY: Clear to auscultation. Breath sounds equal bilaterally. No wheezes , rales, or rhonchi. GASTROINTESTINAL: Abdomen soft, non-tender, nondistended. Normal active bowel sounds. Incontinent of urine. MUSCULOSKELETAL: Extremities without clubbing, cyanosis, or edema. Muscle strength 5/5 in all extremities. No change in sensation. Tremorus movement of hands and fingers. NEURO: Alert and disoriented to self, time, place and situation. Moves all extremities spontaneously. Speech is fluent, but confused. Cranial nerves grossly intact. Follows all commands. <Do Heart Melvina - 01/28/18 17:04> Results - Labs Result diagrams: 01/29/18 04:55 01/29/18 04:55 <Adrian Rios - 01/29/18 13:53> Abnormal lab results 01/28/18 01/28/18 01/29/18 Range/Units 08:05 17:22 04:55 RBC 3.58 L (4.50-5.90) mil/mm3 Hct 37.4 L (39.0-51.0) % MCV 104.6 H (80.0-100.0) fL MCH 36.4 H (27.0-34.0) pg Plt Count 105 L (150-450) th/mm3 [place] % (Auto) 18.0 H (0.0-8.0) % Sodium 133 L (136-145) meq/L Potassium (3.5-5.1) meq/L Chloride 96 L (98-107) meq/L Creatinine (0.60-1.30) mg/dL Random Glucose (74-106) mg/dL Calcium (8.5-10.1) mg/dL AST (15-37) U/L Acetaminophen Less than 2.0 L (10.0-30.0) mcg/mL 01/29/18 Range/Units 04:55 RBC (4.50-5.90) mil/mm3 Hct (39.0-51.0) % MCV (80.0-100.0) fL MCH (27.0-34.0) pg Plt Count (150-450) th/mm3 [place] % (Auto) (0.0-8.0) % Sodium 135 L (136-145) meq/L Potassium 3.4 L (3.5-5.1) meq/L Chloride (98-107) meq/L Creatinine 0.55 L (0.60-1.30) mg/dL Random Glucose 68 L (74-106) mg/dL Calcium 8.1 L (8.5-10.1) mg/dL AST 63 H (15-37) U/L Acetaminophen (10.0-30.0) mcg/mL Short CBC 01/29/18 Range/Units 04:55 WBC 4.2 (4.0-11.0) th/mm3 Hgb 13.0 (13.0-17.0) gm/dL Hct 37.4 L (39.0-51.0) % Plt Count 105 L (150-450) th/mm3 BMP 01/28/18 01/29/18 17:22 04:55 Sodium 133 L 135 L Potassium 3.8 D 3.4 L Chloride 96 L 100 Carbon Dioxide 24.9 24.1 BUN 14 11 Creatinine 0.62 0.55 L Calcium 8.7 8.1 L Liver Function 01/29/18 Range/Units 04:55 Total Bilirubin 0.7 (0.2-1.0) mg/dL AST 63 H (15-37) U/L ALT 48 (12-78) U/L Alkaline Phosphatase 66 (45-117) U/L Albumin 3.4 (3.4-5.0) g/dL <Adrian Rios - 01/29/18 13:53> Abnormal lab results 01/28/18 01/28/18 Range/Units 08:05 08:05 RBC 3.52 L (4.50-5.90) mil/mm3 Hgb 12.7 L (13.0-17.0) gm/dL Hct 36.4 L (39.0-51.0) % MCV 103.4 H (80.0-100.0) fL MCH 36.1 H (27.0-34.0) pg Plt Count 85 L (150-450) th/mm3 Neut % (Auto) 77.2 H (16.0-70.0) % [place] % (Auto) 11.2 H (0.0-8.0) % Lymph # (Auto) 0.6 L (1.0-4.8) th/mm3 Platelet Estimate Low L (Normal) Sodium 125 L (136-145) meq/L Potassium 3.0 L (3.5-5.1) meq/L Chloride 89 L (98-107) meq/L AST 58 H (15-37) U/L Short CBC 01/28/18 Range/Units 08:05 WBC 5.4 (4.0-11.0) th/mm3 Hgb 12.7 L (13.0-17.0) gm/dL Hct 36.4 L (39.0-51.0) % Plt Count 85 L (150-450) th/mm3 BMP 01/28/18 08:05 Sodium 125 L Potassium 3.0 L Chloride 89 L Carbon Dioxide 22.0 BUN 18 Creatinine 0.76 Calcium 8.9 Liver Function 01/28/18 Range/Units 08:05 Total Bilirubin 1.0 (0.2-1.0) mg/dL AST 58 H (15-37) U/L ALT 51 (12-78) U/L Alkaline Phosphatase 82 (45-117) U/L Albumin 3.8 (3.4-5.0) g/dL <Do Heart 01/28/18 11:49> - Imaging Impressions Head CT 01/28/18 07:32 CONCLUSION: 1. No acute intracranial abnormality . <oD Heart 01/28/18 11:49> Caprini VTE Risk Assessment Caprini VTE Risk Assessment: No/Low Risk (score <= 1) <Do Heart 01/28 19:28> Caprini Risk Assessment Model: Point Value = 1 Point Value = 2 Point Value = 3 Point Value = 5 Age 41-60 Minor surgery BMI > 25 kg/m2 Swollen legs Varicose veins or History of unexplained or recurrent spontaneous Oral contraceptives or hormone replacement Sepsis (< 1 month) Serious lung disease, including pneumonia (< 1 month) Abnormal pulmonary function Acute myocardial infarction Congestive heart failure (< 1 month) History of inflammatory bowel disease Medical patient at bed rest Age 61-74 Arthroscopic surgery Major open surgery (> 45 min) Laparoscopic surgery (> 45 min) Malignancy Confined to bed (> 72 hours) Immobilizing plaster cast Central venous access Age >= 75 History of VTE Family history of VTE Factor V Leiden Prothrombin [id number] Lupus anticoagulant Anticardiolipin antibodies Elevated serum homocysteine Heparin-induced thrombocytopenia Other congenital or acquired thrombophilia Stroke (< 1 month) Elective arthroplasty Hip, pelvis, or leg fracture Acute spinal cord injury (< 1 month) <Adrian Rios 01/29/18 13:53> Point Value = 1 Point Value = 2 Point Value = 3 Point Value = 5 Age 41-60 Minor surgery BMI > 25 kg/m2 Swollen legs Varicose veins or History of unexplained or recurrent spontaneous Oral contraceptives or hormone replacement Sepsis (< 1 month) Serious lung disease, including pneumonia (< 1 month) Abnormal pulmonary function Acute myocardial infarction Congestive heart failure (< 1 month) History of inflammatory bowel disease Medical patient at bed rest Age 61-74 Arthroscopic surgery Major open surgery (> 45 min) Laparoscopic surgery (> 45 min) Malignancy Confined to bed (> 72 hours) Immobilizing plaster cast Central venous access Age >= 75 History of VTE Family history of VTE Factor V Leiden Prothrombin [id number] Lupus anticoagulant Anticardiolipin antibodies Elevated serum homocysteine Heparin-induced thrombocytopenia Other congenital or acquired thrombophilia Stroke (< 1 month) Elective arthroplasty Hip, pelvis, or leg fracture Acute spinal cord injury (< 1 month) <Do Heart - 01/28/18 19:28> Prophylaxis Regimen: Total Risk Factor Score Risk Level Prophylaxis Regimen 0-1 Low Early ambulation 2 Moderate Order ONE of the following: *Sequential Compression Device (SCD) *Heparin 5000 units SQ BID 3-4 Higher Order ONE of the following medications: *Heparin 5000 units SQ TID *Enoxaparin/Lovenox 40 mg SQ daily (WT < 150 kg, CrCl > 30 mL/min) *Enoxaparin/Lovenox 30 mg SQ daily (WT < 150 kg, CrCl > 10-29 mL/min) *Enoxaparin/Lovenox 30 mg SQ BID (WT < 150 kg, CrCl > 30 mL/min) AND/OR *Sequential Compression Device (SCD) 5 or more Highest Order ONE of the following medications: *Heparin 5000 units SQ TID (Preferred with Epidurals) *Enoxaparin/Lovenox 40 mg SQ daily (WT < 150 kg, CrCl > 30 mL/min) *Enoxaparin/Lovenox 30 mg SQ daily (WT < 150 kg, CrCl > 10-29 mL/min) *Enoxaparin/Lovenox 30 mg SQ BID (WT < 150 kg, CrCl > 30 mL/min) AND *Sequential Compression Device (SCD) <Adrian Rios - 01/29/18 13:53> Total Risk Factor Score Risk Level Prophylaxis Regimen 0-1 Low Early ambulation 2 Moderate Order ONE of the following: *Sequential Compression Device (SCD) *Heparin 5000 units SQ BID 3-4 Higher Order ONE of the following medications: *Heparin 5000 units SQ TID *Enoxaparin/Lovenox 40 mg SQ daily (WT < 150 kg, CrCl > 30 mL/min) *Enoxaparin/Lovenox 30 mg SQ daily (WT < 150 kg, CrCl > 10-29 mL/min) *Enoxaparin/Lovenox 30 mg SQ BID (WT < 150 kg, CrCl > 30 mL/min) AND/OR *Sequential Compression Device (SCD) 5 or more Highest Order ONE of the following medications: *Heparin 5000 units SQ TID (Preferred with Epidurals) *Enoxaparin/Lovenox 40 mg SQ daily (WT < 150 kg, CrCl > 30 mL/min) *Enoxaparin/Lovenox 30 mg SQ daily (WT < 150 kg, CrCl > 10-29 mL/min) *Enoxaparin/Lovenox 30 mg SQ BID (WT < 150 kg, CrCl > 30 mL/min) AND *Sequential Compression Device (SCD) <Do Heart - 01/28/18 11:49> Assessment and Plan - Assessment (1) Altered mental status Code(s): R41.82 - Altered mental status, unspecified Status: Acute Plan: Patient admitted for AMS and hallucinations. Alcohol withdrawal hallucinosis vs. Wernicke's encephalopathy vs. delirium vs. underlying psychiatric issues vs. electrolyte abnormality. Admit to ICU for close monitoring. CIWA protocol initiated VS and neurochecks q4h. To evaluate for hallucinations. Seizure precautions Cardiac telemetry ordered Medications: Received 10 mg of Ativan while in ED, after scoring between 10-20, and Haldol 1mg. Diazepam 10 mg PO q4hr PRN for CIWA score > 8 Librium 50 mg PO q6hr for severe agitation or hallucinations, or CIWA , if able to tolerate PO Thiamine 100mg IV daily x3 days Zofran PRN for nausea Imaging: CT head showed no acute abnormalities. Labs: CBC WNL, BUN/Cr 18/0.76 WNL. AST/ALT 58/51. Ammonia 25. TSH 1.010. Serum alcohol level < 3 UDS was negative Sodium level of 125, replete with NS 120 mls/hr at maintenance Potassium level 3.0, replete with IV potassium chloride Ordered Acetaminophen Level Follow up BMP following K+ repletion CBC & CMP ordered for tomorrow AM Psychiatry consult CM for ETOH abuse and evaluation of needs One to one sitter (2) Alcohol withdrawal hallucinosis Code(s): F10.232 - Alcohol dependence with withdrawal with perceptual disturbance Status: Acute Plan: see plan for AMS above (3) Hypokalemia Code(s): E87.6 - Hypokalemia Status: Acute Plan: Potassium level 3.0, given K-dur in ED, continue to replete with IV potassium chloride Follow up BMP following K+ repletion (4) Hyponatremia Code(s): E87.1 - Hypo-osmolality and hyponatremia Status: Acute Plan: Sodium level of 125, replete with NS 120 mls/hr at maintenance Continue to monitor for symptoms of hyponatremia (5) Nutrition, metabolism, and development symptoms Code(s): R63.8 - Other symptoms and signs concerning food and fluid intake Status: Acute Plan: Fluids: IVF NS at 120 mls/hr Electrolytes: Continue to monitor and replete as needed. Nutrition: Regular diet. (6) DVT prophylaxis Status: Acute Plan: SCDs & compression hose. <Do Heart - 01/28/18 19:27> - Assessment and Plan Patient admitted to ICU for close monitoring. <Do Heart - 01/28/18 13:29> - Attending Attestation See the residents documentation for details. I saw and evaluated the patient regarding the bowles portions of this evaluation and agree with the residents findings and plans as written. Parts of this note were created using [employer] voice recognition software program. While efforts were made to correct any mistakes made by this software, some mistakes, errors, and omissions may remain in the final note that were not caught when the note was originally created. Plan of care was discussed and agreed upon with the patient as specifically documented in the above note. An opportunity to ask questions with explanation was provided. Patient voiced understanding on all information reviewed and discussed. <Adrian Rios - 01/29/18 13:53> <Carla Heartanna B - Last Filed: 01/28/18 19:27> (1) Altered mental status Qualifiers: Altered mental status type: unspecified Qualified Code(s): R41.82 - Altered mental status, unspecified <Carla Heartanna B - Last Filed: 01/28/18 19:27> (1) Altered mental status Qualifiers: Altered mental status type: unspecified Qualified Code(s): R41.82 - Altered mental status, unspecified
[2018-01-28] MEDS ORDERED: Haloperidol Inj 5 MG/ML Ampul IV.PUSH PRN (11:50)
[2018-01-28] MEDS ORDERED: Thiamine Inj 100 MG in Sodium Chlor 0.9% Inj 100 ML IV.SIG SCH (12:00)
[2018-01-28] MEDS ORDERED: chlordiazePOXIDE 25 MG Capsule PO PRN (12:51)
[2018-01-28] MEDS ORDERED: Bisacodyl 10 MG Supp RECTAL PRN (13:00)
[2018-01-28] MEDS ORDERED: Acetaminophen 325 MG Tablet PO PRN (13:00)
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
[2018-01-28] MEDS: Sod Chloride 0.9% Inj 1,000 ML IV.CONT SCH ×2 (14:11→23:25)
[2018-01-28] MEDS: Thiamine Inj 100 MG in Sodium Chlor 0.9% Inj 100 ML IV.SIG SCH (14:12)
[2018-01-28] MEDS: Potassium Chlor 10 mEq Premix 10 MEQ/100 ML PIGGYBACK IV.SIG SCH ×2 (16:26→16:55)
[2018-01-28 17:55] LABS: Anion Gap 12 meq/L (5-15); Blood Urea Nitrogen 14 mg/dL (7-18); Calcium 8.7 mg/dL (8.5-10.1); Carbon Dioxide 24.9 meq/L (21.0-32.0); Chloride 96 meq/L (98-107); Glomerular Filtration Rate Greater Than 89 mL/min (>89); Glucose,Random 74 mg/dL (74-106); Potassium 3.8 meq/L (3.5-5.1); Sodium 133 meq/L (136-145)
[2018-01-29 06:02] LABS: Baso % (Auto) 0.2 % (0.0-2.0); Eos # (Auto) 0.1 th/mm3 (0.0-0.4); Hematocrit 37.4 % (39.0-51.0); Lymph % (Auto) 24.6 % (9.0-44.0); Mean Corpuscular HGB Conc 34.8 % (32.0-36.0); Mean Corpuscular Hemoglobin 36.4 pg (27.0-34.0); Mean Corpuscular Volume 104.6 fL (80.0-100.0); Mean Platelet Volume 8.8 fL (7.0-11.0); Mono # (Auto) 0.8 th/mm3 (0.0-0.9); Neut # (Auto) 2.3 th/mm3 (1.8-7.7); Neut % (Auto) 55.2 % (16.0-70.0); Platelet Count 105 th/mm3 (150-450); Red Blood Count 3.58 mil/mm3 (4.50-5.90); Red Cell Distribution Width 13.2 % (11.6-17.2); White Blood Count 4.2 th/mm3 (4.0-11.0)
[2018-01-29 06:11] LABS: Alanine Aminotransferase 48 U/L (12-78); Albumin 3.4 g/dL (3.4-5.0); Anion Gap 11 meq/L (5-15); Aspartate Aminotransferase 63 U/L (15-37); Blood Urea Nitrogen 11 mg/dL (7-18); Calcium 8.1 mg/dL (8.5-10.1); Carbon Dioxide 24.1 meq/L (21.0-32.0); Chloride 100 meq/L (98-107); Glomerular Filtration Rate Greater Than 89 mL/min (>89); Glucose,Random 68 mg/dL (74-106); Potassium 3.4 meq/L (3.5-5.1); Sodium 135 meq/L (136-145)
[2018-01-29 06:13] LABS: Alkaline Phosphatase 66 U/L (45-117); Total Protein 6.9 g/dL (6.4-8.2)
[2018-01-29] MEDS: Sod Chloride 0.9% Inj 1,000 ML IV.CONT SCH ×3 (09:18→20:36)
[2018-01-29] MEDS ORDERED: Sodium Phosphate Inj 30 MMOL in Sodium Chlor 0.9% Inj 250 ML IV.SIG PRN (09:34)
[2018-01-29] MEDS ORDERED: Potassium Chlor 20 mEq Premix 20 MEQ/100 ML PIGGYBACK IV.SIG PRN ×2 (09:34)
[2018-01-29] MEDS ORDERED: Magnesium Oxide 400 MG Tablet PO PRN (09:34)
[2018-01-29] MEDS ORDERED: Magnesium Sulfate Inj 4 GM in Sodium Chlor 0.9% Inj 92 ML IV.SIG PRN (09:34)
[2018-01-29] MEDS ORDERED: Potassium Phosphate 500 MG Soluble Tablet PO PRN ×2 (09:34)
[2018-01-29] MEDS ORDERED: Potassium Phosphate Inj 30 MMOL in Sodium Chlor 0.9% Inj 250 ML IV.SIG PRN (09:34)
[2018-01-29] MEDS ORDERED: Magnesium Sulfate Inj 2 GM in Sodium Chlor 0.9% Inj 96 ML IV.SIG PRN (09:34)
[2018-01-29] MEDS ORDERED: Potassium Chlor 40 mEq Premix 40 MEQ/100 ML PIGGYBACK IV.SIG PRN ×2 (09:34)
[2018-01-29] MEDS ORDERED: Potassium Chloride 25 MEQ Effervescent Tablet PO PRN (09:34)
--- NOTE | 2018-01-29 13:47 | P.PNFP ---
Addendum entered and electronically signed by Fern Navarro MD, R2 01/29/18 16 :34: Diagnoses: Chronic alcoholism and alcohol withdrawal. Original Note: Subjective Interval history: Patient slept the entire night while in restraints. CIWA scores 22 ->19 -> 16. Last score was 5 this morning. Patient is awake and alert x3, does not remember the events of yesterday. Is able to answer questions, denies hallucinations currently. No acute events overnight. Has been sleepy this morning. <Fern Navarro - 01/29/18 15:21> Results - Labs Result diagrams: 01/29/18 04:55 01/30/18 07:03 <Adrian Rios - 01/30/18 13:02> Abnormal lab results 01/30/18 Range/Units 07:03 Sodium 134 L (136-145) meq/L Calcium 8.3 L (8.5-10.1) mg/dL AST 64 H (15-37) U/L BMP 01/30/18 07:03 Sodium 134 L Potassium 3.9 Chloride 100 Carbon Dioxide 25.6 BUN 7 Creatinine 0.60 Calcium 8.3 L Liver Function 01/30/18 Range/Units 07:03 Total Bilirubin 0.5 (0.2-1.0) mg/dL AST 64 H (15-37) U/L ALT 52 (12-78) U/L Alkaline Phosphatase 75 (45-117) U/L Albumin 3.4 (3.4-5.0) g/dL <Adrian Rios - 01/30/18 13:02> Abnormal lab results 01/28/18 01/28/18 01/29/18 Range/Units 08:05 17:22 04:55 RBC 3.58 L (4.50-5.90) mil/mm3 Hct 37.4 L (39.0-51.0) % MCV 104.6 H (80.0-100.0) fL MCH 36.4 H (27.0-34.0) pg Plt Count 105 L (150-450) th/mm3 Pierce % (Auto) 18.0 H (0.0-8.0) % Sodium 133 L (136-145) meq/L Potassium (3.5-5.1) meq/L Chloride 96 L (98-107) meq/L Creatinine (0.60-1.30) mg/dL Random Glucose (74-106) mg/dL Calcium (8.5-10.1) mg/dL AST (15-37) U/L Acetaminophen Less than 2.0 L (10.0-30.0) mcg/mL 01/29/18 Range/Units 04:55 RBC (4.50-5.90) mil/mm3 Hct (39.0-51.0) % MCV (80.0-100.0) fL MCH (27.0-34.0) pg Plt Count (150-450) th/mm3 Pierce % (Auto) (0.0-8.0) % Sodium 135 L (136-145) meq/L Potassium 3.4 L (3.5-5.1) meq/L Chloride (98-107) meq/L Creatinine 0.55 L (0.60-1.30) mg/dL Random Glucose 68 L (74-106) mg/dL Calcium 8.1 L (8.5-10.1) mg/dL AST 63 H (15-37) U/L Acetaminophen (10.0-30.0) mcg/mL Short CBC 01/29/18 Range/Units 04:55 WBC 4.2 (4.0-11.0) th/mm3 Hgb 13.0 (13.0-17.0) gm/dL Hct 37.4 L (39.0-51.0) % Plt Count 105 L (150-450) th/mm3 BMP 01/28/18 01/29/18 17:22 04:55 Sodium 133 L 135 L Potassium 3.8 D 3.4 L Chloride 96 L 100 Carbon Dioxide 24.9 24.1 BUN 14 11 Creatinine 0.62 0.55 L Calcium 8.7 8.1 L Liver Function 01/29/18 Range/Units 04:55 Total Bilirubin 0.7 (0.2-1.0) mg/dL AST 63 H (15-37) U/L ALT 48 (12-78) U/L Alkaline Phosphatase 66 (45-117) U/L Albumin 3.4 (3.4-5.0) g/dL <Fern Navarro N - 01/29/18 13:47> Physical Exam Vital signs: Vital Signs 01/29/18 14:00 01/29/18 15:00 01/29/18 16:00 Temperature 98.1 F Pulse Rate 62 53 L 58 L Respiratory Rate 17 14 18 Blood Pressure 128/80 115/74 145/79 H Pulse Oximetry 99 100 96 01/29/18 18:00 01/29/18 19:57 01/29/18 20:00 Temperature 98.0 F 97.5 F L Pulse Rate 68 79 80 Respiratory Rate 18 18 Blood Pressure 137/87 139/82 Pulse Oximetry 93 L 100 01/29/18 23:22 01/29/18 23:51 01/30/18 03:52 Temperature 98.4 F Pulse Rate 65 65 72 Respiratory Rate 16 Blood Pressure 119/66 Pulse Oximetry 98 01/30/18 04:00 01/30/18 08:00 01/30/18 12:00 Temperature 97.6 F 97.7 F 98.0 F Pulse Rate 75 66 95 H Respiratory Rate 18 21 20 Blood Pressure 146/92 H 153/96 H 149/75 H Pulse Oximetry 100 100 98 01/30/18 12:23 Temperature Pulse Rate Respiratory Rate Blood Pressure Pulse Oximetry 97 Intake & Output 01/29/18 01/30/18 01/30/18 18:59 06:59 18:59 Intake Total 2070 / 2070 1200 / 1200 Output Total 1900 / 1900 1100 / 1100 Balance 171 / 171 890 / 890 1200 / 1200 Weight 66.2 kg Intake: IV 1871 / 1871 1270 / 1270 1200 / 1200 NS Inj 1,000 ML @ 120 mls/hr IV 1770 / 1770 1270 / 1270 1200 / 1200 .CONT .Q8H20M DELMI Rx#:[id number] Thiamine Inj 100 MG In NS Inj 101 / 101 100 ML @ 100 mls/hr IV.SIG Q24H [facility] Rx#:[id number] Oral 200 / 200 720 / 720 Output: Urine 1900 / 1900 1100 / 1100 Other: # Voids 1 Date of Last Bowel Movement 01/29/18 # Bowel Movements 1 <Adrian Rios - 01/30/18 13:02> Vital Signs 01/28/18 14:54 01/28/18 15:00 01/28/18 15:02 Temperature Pulse Rate 80 74 72 Respiratory Rate 35 H 20 18 Blood Pressure 134/79 Pulse Oximetry 91 L 100 100 01/28/18 16:00 01/28/18 17:00 01/28/18 17:01 Temperature 98.2 F Pulse Rate 70 73 69 Respiratory Rate 16 21 26 H Blood Pressure 125/85 122/78 122/78 Pulse Oximetry 100 100 100 01/28/18 18:00 01/28/18 18:01 01/28/18 19:00 Temperature Pulse Rate 67 68 65 Respiratory Rate 27 H 29 H 22 Blood Pressure 108/58 L 108/58 L 103/67 Pulse Oximetry 92 L 100 01/28/18 20:00 01/28/18 21:00 01/28/18 22:00 Temperature 97.8 F Pulse Rate 62 63 67 Respiratory Rate 16 16 21 Blood Pressure 112/69 108/69 Pulse Oximetry 100 100 94 L 01/28/18 22:01 01/28/18 23:00 01/28/18 23:12 Temperature Pulse Rate 59 L 85 81 Respiratory Rate 15 23 22 Blood Pressure 128/75 122/82 Pulse Oximetry 97 99 86 L 01/29/18 00:00 01/29/18 01:00 01/29/18 02:00 Temperature 97.8 F Pulse Rate 70 62 66 Respiratory Rate 17 13 21 Blood Pressure 109/71 123/85 121/80 Pulse Oximetry 100 100 100 01/29/18 03:00 01/29/18 04:00 01/29/18 04:07 Temperature 98 F Pulse Rate 58 L 64 63 Respiratory Rate 13 17 14 Blood Pressure 119/75 121/83 Pulse Oximetry 99 100 100 01/29/18 04:08 01/29/18 04:09 01/29/18 04:10 Temperature Pulse Rate 65 64 64 Respiratory Rate 15 15 15 Blood Pressure 124/82 128/82 124/79 Pulse Oximetry 100 100 100 01/29/18 04:20 01/29/18 05:00 01/29/18 06:00 Temperature Pulse Rate 64 58 L 54 L Respiratory Rate 15 18 20 Blood Pressure 121/84 129/79 153/74 H Pulse Oximetry 100 97 100 01/29/18 07:00 01/29/18 08:00 01/29/18 09:00 Temperature 97.7 F Pulse Rate 74 55 L 60 Respiratory Rate 17 14 15 Blood Pressure 147/81 H 124/78 138/85 Pulse Oximetry 100 100 100 01/29/18 10:00 01/29/18 11:00 Temperature Pulse Rate 68 61 Respiratory Rate 16 14 Blood Pressure 124/80 115/69 Pulse Oximetry 81 L 100 Intake & Output 01/28/18 01/29/18 01/29/18 18:59 06:59 18:59 Intake Total 1201 / 1201 1100 / 1100 1000 / 1000 Output Total 450 / 450 Balance 751 / 751 1100 / 1100 1000 / 1000 Weight 69 kg 64.7 kg Intake: IV 1201 / 1201 1100 / 1100 1000 / 1000 NS Inj 1,000 ML @ 120 mls/hr IV 1000 / 1000 1000 / 1000 .CONT .Q8H20M DELMI Rx#:[id number] KCl 10 mEq Premix Inj 10 meq In 100 / 100 100 / 100 100 ml @ 100 mls/hr IV.SIG Q1H DELMI Rx#:[id number] NS Inj 1,000 ML @ 1000 mls/hr 1000 / 1000 IV.SIG BOLUS DELMI Rx#:[id number] Thiamine Inj 100 MG In NS Inj 101 / 101 100 ML @ 100 mls/hr IV.SIG Q24H DELMI Rx#:[id number] Output: Urine 450 / 450 Other: # Bowel Movements 0 Weight On Admission 69 kg <MelanieFern N - 01/29/18 13:47> Narrative: GENERAL: Thin, 52 year old male resting quietly in bed, is in soft restraints. HEENT: Atraumatic. Normocephalic. NECK: Trachea midline without obvious JVD. CARDIOVASCULAR: RRR RESPIRATORY: Clear to auscultation GASTROINTESTINAL: Abdomen firm, non-tender, no organomegaly. MUSCULOSKELETAL: Extremities without clubbing, cyanosis, or edema. NEURO: Alert and disoriented to self, time, place and situation. Moves all extremities spontaneously. Speech is fluent, but confused. Cranial nerves grossly intact. Alert and oriented x3 <MelanieFern N - 01/29/18 15:21> Assessment and Plan - Assessment (1) Alcohol withdrawal (2) Chronic alcoholism (3) Hypokalemia Code(s): E87.6 - Hypokalemia Status: Acute Plan: Improved. Replete as needed (4) Hyponatremia Code(s): E87.1 - Hypo-osmolality and hyponatremia Status: Acute Plan: Improved. On NS 120 mls/hr at maintenance, continue at this time Will consider discontinuing tomorrow (5) Nutrition, metabolism, and development symptoms Code(s): R63.8 - Other symptoms and signs concerning food and fluid intake Status: Acute Plan: Fluids: IVF NS at 120 mls/hr Electrolytes: Continue to monitor and replete as needed. Nutrition: Regular diet. (6) DVT prophylaxis Status: Acute Plan: SCDs & compression hose. (7) Altered mental status Code(s): R41.82 - Altered mental status, unspecified Status: Acute Plan: Patient admitted for AMS and hallucinations, which have now resolved. CIWA protocol initiated VS and neurochecks q4h. CIWA scores in the last 12 hours have been low, transfer to [facility] today. Will have sitter for 24 hrs after discharge. Seizure precautions Cardiac telemetry Replete as needed DC restraints Medications: Diazepam 10 mg PO q4hr PRN for CIWA score > 8 Librium 50 mg PO q6hr for severe agitation or hallucinations, or CIWA , if able to tolerate PO Thiamine 100mg IV daily x3 days Zofran PRN for nausea Haldol PRN for agitation Psychiatry consulted, no criteria for admission at this point CM for ETOH abuse and evaluation of needs (8) Alcohol withdrawal hallucinosis Code(s): F10.232 - Alcohol dependence with withdrawal with perceptual disturbance Status: Acute Plan: Resolved. <Fern Navarro - 01/29/18 15:00> - Assessment and Plan Discharge Planning: Possible DC in 1-2 days <Fern Navarro N - 01/29/18 15:21> - Attending Attestation See the residents documentation for details. I saw and evaluated the patient regarding the bowles portions of this evaluation and agree with the residents findings and plans as written. Parts of this note were created using [employer] voice recognition software program. While efforts were made to correct any mistakes made by this software, some mistakes, errors, and omissions may remain in the final note that were not caught when the note was originally created. Plan of care was discussed and agreed upon with the patient as specifically documented in the above note. An opportunity to ask questions with explanation was provided. Patient voiced understanding on all information reviewed and discussed. <Adrian Rios - 01/30/18 13:02> <Fern Navarro N - Last Filed: 01/29/18 15:00> (7) Altered mental status Qualifiers: Altered mental status type: unspecified Qualified Code(s): R41.82 - Altered mental status, unspecified <Fern Navarro N - Last Filed: 01/29/18 15:00> (7) Altered mental status Qualifiers: Altered mental status type: unspecified Qualified Code(s): R41.82 - Altered mental status, unspecified
[2018-01-29] MEDS: Thiamine Inj 100 MG in Sodium Chlor 0.9% Inj 100 ML IV.SIG SCH (15:30)
--- NOTE | 2018-01-29 20:30 | ECG ---
Date Performed: 01/28/2018 Time Performed: 13:32:43 PTAGE: 52 years EKG: Sinus rhythm WITH ATRIAL PREMATURE COMPLEXES PREVIOUS TRACING : 01/28/2018 13.30 Since the previous tracing, no significant change not ed DOCTOR: Kan Wynn Interpretating Date/Time 01/29/2018 20:28:54
[2018-01-30] MEDS: Sod Chloride 0.9% Inj 1,000 ML IV.CONT SCH (04:52)
[2018-01-30 08:08] LABS: Alanine Aminotransferase 52 U/L (12-78); Alkaline Phosphatase 75 U/L (45-117)
[2018-01-30 08:16] LABS: Albumin 3.4 g/dL (3.4-5.0); Anion Gap 8 meq/L (5-15); Aspartate Aminotransferase 64 U/L (15-37); Blood Urea Nitrogen 7 mg/dL (7-18); Calcium 8.3 mg/dL (8.5-10.1); Carbon Dioxide 25.6 meq/L (21.0-32.0); Chloride 100 meq/L (98-107); Glomerular Filtration Rate Greater Than 89 mL/min (>89); Glucose,Random 86 mg/dL (74-106); Potassium 3.9 meq/L (3.5-5.1); Sodium 134 meq/L (136-145)
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
[2018-01-30] MEDS: Thiamine Inj 100 MG in Sodium Chlor 0.9% Inj 100 ML IV.SIG SCH (13:40)
--- NOTE | 2018-01-30 14:55 | P.DS ---
Date of admission: 01/28/18 11:33 Primary care physician: No Primary Care Physician Brief History from admission: Patient unable to provide a history at this time. Patient unable to answer questions appropriately. Throughout questioning patient seems to be reacting to internal stimuli. When asked what his name is, he states "Alexandrea Koch", but then states that this is his friend standing next to the hospital bed talking to him. There are no other people in the room, in this direction of which he is motioning. When asked the year patient states that it is 1986 and does not believe it is 2017 when corrected. He notes that he is in [place] but thinks that he is in [place]. When asked where he is right now he states that he is "in front of your house". When corrected that he is at [facility], he nods his head. Patient is unable to say why or how he got to the hospital at this moment in time. After speaking to ED physician and nursing staff, patient was brought in by police, after they were called for patient being disruptive on [facility], where he lives. Patient was reacting to internal stimuli at that time and was noted to have hallucinations. He has been admitted to [facility] in the past for similar symptoms. Patient was discharged in stable condition after receiving Ativan and Librium for withdrawal. DS: Diagnosis - Discharge Diagnosis (1) Alcohol withdrawal Status: Acute (2) Chronic alcoholism Status: Acute (3) Hypokalemia Status: Resolved (4) Hyponatremia Status: Resolved (5) Nutrition, metabolism, and development symptoms Status: Acute (6) DVT prophylaxis Status: Acute DS: Summary Hospital Course: Patient was admitted while placed under the [place] Act and the [place] Act. Started on CIWA protocol and fluids (and Haldol), with scores as high as 22. Psychiatry was consulted to evaluate the patient - was not deemed eligible for psych admission. Because of this and concerns for seizures/DTs, he was transferred for monitoring in the ICU. He was also placed on restraints due to him trying to leave the hospital. He showed improvement the next morning and was transferred to the medical floor. On Day 3 (72 hrs +) of admission, he was conversant, eloquent, aware of his medical situation, and displayed the decision -making competence/informed consent. His case was discussed w/psychiatry, and it was agreed that the [place] Act could be lifted. Because he showed improvement and CIWA scores down to 1, he was set up for discharge and no further medical treatment was given. The [place] Act , but psych was reconsulted for [place] Act assessment. He was given orders to follow up with PCP outpatient. - Time Spent with Patient Total time spent providing and/or coordinating discharge services: Greater than 30 minutes - Quality: VTE Deep Vein Thrombosis/Pulmonary Embolism Present on Admission: Yes Exam Vital signs: Vital Signs 01/29/18 15:00 01/29/18 16:00 01/29/18 18:00 Temperature 98.1 F 98.0 F Pulse Rate 53 L 58 L 68 Respiratory Rate 14 18 18 Blood Pressure 115/74 145/79 H 137/87 Pulse Oximetry 100 96 93 L 01/29/18 19:57 01/29/18 20:00 01/29/18 23:22 Temperature 97.5 F L 98.4 F Pulse Rate 79 80 65 Respiratory Rate 18 16 Blood Pressure 139/82 119/66 Pulse Oximetry 100 98 01/29/18 23:51 01/30/18 03:52 01/30/18 04:00 Temperature 97.6 F Pulse Rate 65 72 75 Respiratory Rate 18 Blood Pressure 146/92 H Pulse Oximetry 100 01/30/18 08:00 01/30/18 12:00 01/30/18 12:23 Temperature 97.7 F 98.0 F Pulse Rate 66 95 H Respiratory Rate 21 20 Blood Pressure 153/96 H 149/75 H Pulse Oximetry 100 98 97 Intake & Output 01/29/18 01/30/18 01/30/18 18:59 06:59 18:59 Intake Total 2070 1200 / 1200 Output Total 1900 / 1900 1100 / 1100 Balance 171 / 171 890 / 890 1200 / 1200 Weight 66.2 kg Intake: IV 187 / 187 1270 / 1270 1200 / 1200 NS Inj 1,000 ML @ 120 mls/hr IV 1770 / 1770 1270 / 1270 1200 / 1200 .CONT .Q8H20M DELMI Rx#:[id number] Thiamine Inj 100 MG In NS Inj 101 / 101 100 ML @ 100 mls/hr IV.SIG Q24H DELMI Rx#:[id number] Oral 200 / 200 720 / 720 Output: Urine 1900 / 1900 1100 / 1100 Other: # Voids 1 Date of Last Bowel Movement 01/29/18 # Bowel Movements 1 Narrative: GENERAL: Thin, 52 year old male sitting up in bed comfortably. Is pleasant and conversant. Awake and alert x3. HEENT: Atraumatic. Normocephalic. NECK: Trachea midline . CARDIOVASCULAR: RRR RESPIRATORY: Clear to auscultation GASTROINTESTINAL: Abdomen firm, non-tender. MUSCULOSKELETAL: Extremities without clubbing, cyanosis, or edema. NEURO: She has capacity for decision-making.. Moves all extremities spontaneously. Speech is fluent,. Cranial nerves grossly intact. PSYCH: Does not appear to be engaging with internal stimuli. Results Procedures completed during hospitalization: N/A Labs on day of discharge: Labs from last 24 hours 01/30/18 07:03 Sodium 134 L Potassium 3.9 Chloride 100 Carbon Dioxide 25.6 Anion Gap 8 BUN 7 Creatinine 0.60 Estimated GFR Greater than 89 Random Glucose 86 Calcium 8.3 L Total Bilirubin 0.5 AST 64 H ALT 52 Alkaline Phosphatase 75 Total Protein 7.0 Albumin 3.4 - Impressions ITS Impressions Head CT 01/28/18 07:32 CONCLUSION: 1. No acute intracranial abnormality . Discharge Plan - Discharge Disposition Patient Disposition: Discharge Home - Discharge Condition Condition: Stable - Discharge Order Discharge Orders: Discharge Order (Routine); Ordered 01/30/18 Ordered By: Fern Navarro - Discharge Details Anticipated Discharge Date: 01/30/18 - Physicians Team Primary Care Provider: Primary Care Margy Parks Attending Provider: Adrian Rios Other Providers: Ricky Bronson MD
--- NOTE | 2018-01-30 15:38 | P.PNADD ---
Addendum to Inpatient Note Reason for Addendum: Additional Documentation Additional information: Spoke w/Dr. Bronson over the phone. At this time, we agree on lifting the [place] Act.
== END 2018-01-30 18:01 | disposition home or self-care (01) ==
LOC: NEPD 06:58 → NEDA 11:33 → HIMC 14:35 → N04 01-29 17:26
PROVIDERS: ADMIT Family Medicine; ATTEND Family Medicine